=== PATIENT | male | born 1990 | race Native Hawaiian/Other Pacific Islander ===

== ENCOUNTER 2021-03-08 18:12 | Emergency (ER) | payer OTHER ==
[~2021-03-08] VITALS: Ht 177.8 cm; Wt 74.8 kg
[2021-03-08 18:17] VITALS: BP 145/83; TEMP 98
[2021-03-08] MEDS ORDERED: CIPR500T PO (19:15)
[2021-03-08] MEDS ORDERED: MOBIC7.5 M1 PO (19:15)
== END 2021-03-08 19:35 | disposition home or self-care (01) ==
LOC: ED 18:12
DX: K13.79 Other lesions of oral mucosa (principal); R52 Pain, unspecified; Z20.2 Contact with and (suspected) exposure to infections with a predominantly sexual mode of transmission; F41.8 Other specified anxiety disorders; F17.210 Nicotine dependence, cigarettes, uncomplicated
CPT/HCPCS: 96372; 99283; J0696; J1885